=== PATIENT | male | born 1940 | race Caucasian/White ===

== ENCOUNTER → 2018-12-09 | Outpatient (REF) | payer MEDICARE ==
[~2018-12-09] MED LIST: ADULT ASPIRIN L81 MG; AMIODARONE200 MG PO; ASPIRIN PO; CORDARONE/200 MG/TAB PO; DILTIAZEM120 M1 OR; DILTIAZEM120 M1 PO; HYDROCHLOROT25 MG PO; JANUMET1 TA1 PO; LIPITOR20 MG PO; LISINOPRIL20 M1 OR; LISINOPRIL20 M1 PO; LOTREL 5/101 CAP PO; MEDDOSEPAK PO; METFORMIN500 MG PO; NIACIN500 M2 PO; NIACIN500 M3 OR; PERCOCET 5/325M1 TAB PO; PRADAXA150 MG PO
== END | disposition home or self-care (01) ==
LOC: DI 14:19
PROVIDERS: ATTEND Urology
DX: N20.0 Calculus of kidney (principal)

== ENCOUNTER 2019-10-15 | Emergency (ER) | payer MEDICARE ==
[2019-10-15] MEDS ORDERED: KEFLEX500 MG PO (01:02)
[2019-10-15] MEDS ORDERED: ULTRAM50 MG PO (01:02)
[2019-10-15] MEDS ORDERED: TRESIBA FL100 UNIT/M SC (01:08)
[2019-10-15] MEDS ORDERED: COUMADIN2.5 MG PO (01:10)
[2019-10-15] MEDS ORDERED: COUMADIN7.5 MG PO (01:10)
[2019-10-15] MEDS ORDERED: COREG25 MG PO (01:11)
[2019-10-15] MEDS ORDERED: METFORMIN500 MG PO (01:12)
== END 2019-10-15 01:25 | disposition home or self-care (01) ==
DX: L72.3 Sebaceous cyst (principal); E11.9 Type 2 diabetes mellitus without complications; I10 Essential (primary) hypertension; I48.91 Unspecified atrial fibrillation; Z79.4 Long term (current) use of insulin

== ENCOUNTER 2020-12-19 | Emergency (ER) | payer MEDICARE ==
[~2020-12-19] MED LIST changes: +COREG25 MG PO; +COUMADIN7.5 MG PO; +KEFLEX500 MG PO; +TRESIBA FL100 UNIT/M SC; +ULTRAM50 MG PO; +WARFARIN SODIU2.5 MG PO
[2020-12-19] MEDS ORDERED: WARFARIN5 MG PO (20:28)
[2020-12-19] MEDS ORDERED: CARDIZEM LA300 MG PO (20:36)
[2020-12-19] MEDS ORDERED: AVALIDE 300-12.1 TAB PO (20:37)
[2020-12-19] MEDS ORDERED: ORPHENADRINE100 MG PO (22:13)
[2020-12-19] MEDS ORDERED: PERCOCET 5/321 COMBO PO (22:13)
== END 2020-12-19 22:40 | disposition home or self-care (01) ==
DX: M54.5 Low back pain (principal); I10 Essential (primary) hypertension; E11.9 Type 2 diabetes mellitus without complications; I48.91 Unspecified atrial fibrillation; Z79.84 Long term (current) use of oral hypoglycemic drugs; Z98.1 Arthrodesis status

== ENCOUNTER 2021-08-13 09:56 | Emergency (ER) | payer MEDICARE ==
[~2021-08-13] VITALS: Ht 190.5 cm; Wt 104.0 kg
[~2021-08-13 09:56] MED LIST changes: +AVALIDE 300-12.1 TAB PO; +CARDIZEM LA300 MG PO; +ORPHENADRINE100 MG PO; +PERCOCET 5/321 COMBO PO; +WARFARIN5 MG PO
[2021-08-13] MEDS ORDERED: PLAVIX75 MG PO (10:12)
[2021-08-13] MEDS ORDERED: LIPITOR20 M1 PO (10:13)
[2021-08-13] MEDS ORDERED: ALLOPURINOL100 MG PO (10:14)
[2021-08-13 10:34] LABS: IMMATURE GRANULOCYTES 0.4 % (0.0-5.0); MEAN CORPUSCULAR HGB 31.9 pG CALC (26.0-32.0); MEAN CORPUSCULAR HGB CONC 33.1 g/dL CAL (32.0-36.0); NEUT# 9.91 thou/uL (1.82-7.42); RED BLOOD COUNT 3.13 mill/uL (4.70-6.10); RED CELL DISTRI WIDTH 15.3 % (11.5-15.5)
[2021-08-13 10:41] LABS: HEMATOCRIT 30.2 % (39.0-50.0); MEAN CELL VOLUME 96.5 fL CALC (80.0-100.0)
[2021-08-13 12:23] VITALS: BP 180/93
== END 2021-08-13 12:33 | disposition home or self-care (01) ==
LOC: ED 09:56
PROVIDERS: Family Medicine
PROC: 0S9D3ZZ Drainage of Left Knee Joint, Percutaneous Approach (ICD-10-PCS; principal; 2021-08-13)
DX: M25.562 Pain in left knee (principal); I10 Essential (primary) hypertension; E78.5 Hyperlipidemia, unspecified; E11.9 Type 2 diabetes mellitus without complications; M10.9 Gout, unspecified; I48.91 Unspecified atrial fibrillation; Z79.4 Long term (current) use of insulin; Z79.84 Long term (current) use of oral hypoglycemic drugs

== ENCOUNTER 2023-10-11 17:55 | Observation (INO) | payer MEDICARE ==
[~2023-10-11] VITALS: Ht 190.5 cm; Wt 82.0 kg
[2023-10-11] VITALS (15 sets, daily range): BP systolic 124–170; BP diastolic 71–88
[~2023-10-11 17:55] MED LIST changes: +ALLOPURINOL100 MG PO; +FLEXERIL5 M1 PO; +LIPITOR20 M1 PO; +PLAVIX75 MG PO
[2023-10-11 18:47] LABS: BASO% 0.4 % (0-3); EOS% 1.2 % (0-8); HEMATOCRIT 28.7 % (39.0-50.0); HEMOGLOBIN 9.2 g/dl (14.0-18.0); IMMATURE GRANULOCYTES 2.6 % (0.0-5.0); LYMPH% 3.7 % (15-41); MEAN CELL VOLUME 99.7 fL CALC (80.0-100.0); MEAN CORPUSCULAR HGB 31.9 pG CALC (26.0-32.0); MEAN CORPUSCULAR HGB CONC 32.1 g/dL CAL (32.0-36.0); MONO% 8.4 % (2-13); NEUT# 14.56 thou/uL (1.82-7.42); NEUT% 83.7 % (42-76); RED BLOOD COUNT 2.88 mill/uL (4.70-6.10)
[2023-10-11 19:07] LABS: ALBUMIN 4.4 g/dL (3.2-5.0); ANION GAP 14 (6-22 (CALC)); BILIRUBIN, TOTAL 1.3 mg/dL (0.2-1.3); BUN 28 mg/dL (8-23); BUN/CREATININE RATIO 23 (12-20 (CALC)); CARBON DIOXIDE 26 mmol/l (22-30); CHLORIDE 103 mmol/l (95-108); CREATININE 1.2 mg/dL (0.7-1.3); GFR FOR AFR.AMER. > 60 ML/MIN (>=60 (CALC)); GFR OTHER RACES 58 ML/MIN (>=60 (CALC)); POTASSIUM 4.2 mmol/l (3.5-5.1); SGOT/AST 24 u/l (19-48); SODIUM 139 mmol/l (137-146); TOTAL PROTEIN 7.7 g/dL (6.3-8.2)
[2023-10-11 19:12] LABS: ALKALINE PHOSPHATASE 106 u/l (38-126)
[2023-10-11] MEDS ORDERED: LASIX 40 MG TAB40 MG PO (20:22)
[2023-10-11] MEDS ORDERED: AMLODIPINE BESYL5 MG PO (20:22)
[2023-10-11] MEDS ORDERED: METHYLPRED4 MG PO (20:23)
[2023-10-11] MEDS ORDERED: FLEXERIL5 M1 PO (20:24)
[2023-10-11] MEDS ORDERED: CARVEDILOL12.5 MG PO (20:25)
[2023-10-11] MEDS ORDERED: KLOR-CON M1010 MEQ PO (20:25)
[2023-10-12] VITALS (57 sets, daily range): BP systolic 99–148; BP diastolic 58–93
[2023-10-12 06:03] LABS: CHOLESTEROL HDL RATIO 2.6 (<4.4 (CALC)); MAGNESIUM 1.8 mg/dL (1.6-2.3)
[2023-10-12 09:23] LABS: BASO% 0.3 % (0-3); HEMATOCRIT 26.6 % (39.0-50.0); HEMOGLOBIN 8.4 g/dl (14.0-18.0); IMMATURE GRANULOCYTES 3.4 % (0.0-5.0); LYMPH% 1.6 % (15-41); MEAN CELL VOLUME 98.2 fL CALC (80.0-100.0); MEAN CORPUSCULAR HGB CONC 31.6 g/dL CAL (32.0-36.0); MONO% 9.1 % (2-13); NEUT# 20.31 thou/uL (1.82-7.42); NEUT% 85.6 % (42-76); RED BLOOD COUNT 2.71 mill/uL (4.70-6.10); RED CELL DISTRI WIDTH 16.9 % (11.5-15.5)
[2023-10-12 09:42] LABS: ALBUMIN 3.6 g/dL (3.2-5.0); ALKALINE PHOSPHATASE 89 u/l (38-126); ANION GAP 13 (6-22 (CALC)); BILIRUBIN, TOTAL 1.3 mg/dL (0.2-1.3); BUN 28 mg/dL (8-23); BUN/CREATININE RATIO 25 (12-20 (CALC)); CARBON DIOXIDE 23 mmol/l (22-30); CHLORIDE 106 mmol/l (95-108); CREATININE 1.1 mg/dL (0.7-1.3); GFR FOR AFR.AMER. > 60 ML/MIN (>=60 (CALC)); GFR OTHER RACES > 60 ML/MIN (>=60 (CALC)); POTASSIUM 4.7 mmol/l (3.5-5.1); SGOT/AST 19 u/l (19-48); SODIUM 136 mmol/l (137-146); TOTAL PROTEIN 6.5 g/dL (6.3-8.2)
[2023-10-13] VITALS (18 sets, daily range): BP systolic 120–155; BP diastolic 62–97
[2023-10-13 05:19] LABS: BASO% 0.6 % (0-3); EOS% 0.4 % (0-8); HEMATOCRIT 27.5 % (39.0-50.0); HEMOGLOBIN 8.7 g/dl (14.0-18.0); IMMATURE GRANULOCYTES 2.6 % (0.0-5.0); LYMPH% 5.1 % (15-41); MEAN CELL VOLUME 99.6 fL CALC (80.0-100.0); MEAN CORPUSCULAR HGB 31.5 pG CALC (26.0-32.0); MEAN CORPUSCULAR HGB CONC 31.6 g/dL CAL (32.0-36.0); MONO% 13.7 % (2-13); NEUT# 9.74 thou/uL (1.82-7.42); NEUT% 77.6 % (42-76); RED BLOOD COUNT 2.76 mill/uL (4.70-6.10)
[2023-10-13 05:35] LABS: ALBUMIN 3.4 g/dL (3.2-5.0); ALKALINE PHOSPHATASE 90 u/l (38-126); ANION GAP 13 (6-22 (CALC)); BILIRUBIN, TOTAL 1.1 mg/dL (0.2-1.3); BUN 35 mg/dL (8-23); BUN/CREATININE RATIO 28 (12-20 (CALC)); CARBON DIOXIDE 24 mmol/l (22-30); CHLORIDE 106 mmol/l (95-108); CREATININE 1.3 mg/dL (0.7-1.3); GFR FOR AFR.AMER. > 60 ML/MIN (>=60 (CALC)); GFR OTHER RACES 53 ML/MIN (>=60 (CALC)); MAGNESIUM 2.1 mg/dL (1.6-2.3); POTASSIUM 4.5 mmol/l (3.5-5.1); SGOT/AST 15 u/l (19-48); SODIUM 139 mmol/l (137-146); TOTAL PROTEIN 6.1 g/dL (6.3-8.2)
[2023-10-13] MEDS ORDERED: LASIX 40 MG TAB40 MG PO (15:48)
[2023-10-13] MEDS ORDERED: ZITHROMAX250 MG PO (15:49)
[2023-10-13] MEDS ORDERED: AMOX/K CLAV875 M1 PO (15:49)
== END 2023-10-13 17:25 | disposition home or self-care (01) ==
LOC: ED 17:55 → ED-I 19:15 → ED 19:43 → ICU 19:44
PROVIDERS: Family Medicine; Student in an Organized Health Care Education/Training Program; ADMIT Internal Medicine; ATTEND Internal Medicine
PROC: 0W993ZZ Drainage of Right Pleural Cavity, Percutaneous Approach (ICD-10-PCS; principal; 2023-10-13)
DX: J18.9 Pneumonia, unspecified organism (principal); J91.8 Pleural effusion in other conditions classified elsewhere; I48.91 Unspecified atrial fibrillation; I10 Essential (primary) hypertension; E11.9 Type 2 diabetes mellitus without complications; C92.10 Chronic myeloid leukemia, BCR/ABL-positive, not having achieved remission; Z95.818 Presence of other cardiac implants and grafts; Z79.84 Long term (current) use of oral hypoglycemic drugs; Z79.4 Long term (current) use of insulin
CPT/HCPCS: J1650; Q9967

== ENCOUNTER 2023-10-26 17:04 | Inpatient (IN) | payer MEDICARE ==
[~2023-10-26] VITALS: Ht 190.5 cm; Wt 102.0 kg
[2023-10-26] VITALS (31 sets, daily range): BP systolic 122–139; BP diastolic 56–102
[~2023-10-26 17:04] MED LIST changes: +AMLODIPINE BESYL5 MG PO; +AMOX/K CLAV875 M1 PO; +CARVEDILOL12.5 MG PO; +KLOR-CON M1010 MEQ PO; +LASIX 40 MG TAB40 MG PO; +METHYLPRED4 MG PO; +ZITHROMAX250 MG PO
[2023-10-26] MEDS ORDERED: PREDNISONE20 MG PO (18:26)
[2023-10-26] MEDS ORDERED: SODIUM CHLORIDE 0.9% 1,000 ML IV ONE ×2 (18:30→19:40)
[2023-10-26 19:12] LABS: BASO% 0.2 % (0-3); HEMATOCRIT 23.1 % (39.0-50.0); HEMOGLOBIN 7.7 g/dl (14.0-18.0); IMMATURE GRANULOCYTES 4.1 % (0.0-5.0); LYMPH% 1.8 % (15-41); MEAN CELL VOLUME 92.4 fL CALC (80.0-100.0); MEAN CORPUSCULAR HGB 30.8 pG CALC (26.0-32.0); MEAN CORPUSCULAR HGB CONC 33.3 g/dL CAL (32.0-36.0); MONO% 3.2 % (2-13); NEUT# 11.36 thou/uL (1.82-7.42); NEUT% 90.7 % (42-76); RED BLOOD COUNT 2.5 mill/uL (4.70-6.10)
[2023-10-26 19:25] LABS: ALBUMIN 3.3 g/dL (3.2-5.0); ALKALINE PHOSPHATASE 111 u/l (38-126); CHLORIDE 95 mmol/l (95-108); SGOT/AST 21 u/l (19-48)
[2023-10-26 19:37] LABS: ANION GAP 17 (6-22 (CALC)); BILIRUBIN, TOTAL 0.5 mg/dL (0.2-1.3); BUN 107 mg/dL (8-23); BUN/CREATININE RATIO 36 (12-20 (CALC)); CARBON DIOXIDE 17 mmol/l (22-30); GFR FOR AFR.AMER. 24 ML/MIN (>=60 (CALC)); GFR OTHER RACES 20 ML/MIN (>=60 (CALC)); POTASSIUM 5.6 mmol/l (3.5-5.1); SODIUM 123 mmol/l (137-146)
[2023-10-26] MEDS ORDERED: INSULIN REGULAR (HUMAN) 100 UNIT/ML INJ IV ONE (19:40)
[2023-10-26] MEDS ORDERED: SODIUM CHLORIDE 0.9% 500 ML IV ONE (19:45)
[2023-10-26 19:58] LABS: URINE BILIRUBIN - DIPSTICK Negative (NEGATIVE); URINE BLOOD DIPSTICK Negative (NEGATIVE); URINE GLUCOSE - DIPSTICK >=1000 mg/dL (NEGATIVE); URINE KETONE Negative (NEGATIVE); URINE LEUK ESTERASE Negative (NEGATIVE); URINE NITRITE - DIPSTICK Negative (Negative); URINE PH 5.5 (4.5-8.0); URINE PROTEIN - DIPSTICK Negative (NEG-TRACE); URINE SPECIFIC GRAVITY <=1.005; URINE UROBILINOGEN - DIPSTICK 0.2 E.U./dL (0.2)
[2023-10-26 19:59] LABS: URINE COLOR Yellow
[2023-10-26] MEDS ORDERED: MAGNESIUM HYDROXIDE 30 ML UDC PO PRN (20:30)
[2023-10-26] MEDS ORDERED: SODIUM CHLORIDE 0.9% 1,000 ML IV PRN (20:30)
[2023-10-26] MEDS ORDERED: ACETAMINOPHEN 325 MG/TAB PO PRN (20:30)
[2023-10-26] MEDS ORDERED: POTASSIUM CHLORIDE 40 MEQ in SODIUM CHLORIDE 0.45% 1,000 ML IV PRN (21:40)
[2023-10-26] MEDS ORDERED: DEXTROSE 5% w/NACL 0.45 1,000 ML IV PRN (21:40)
[2023-10-26] MEDS ORDERED: SODIUM CHLORIDE 0.45% 1,000 ML IV PRN (21:40)
[2023-10-26] MEDS ORDERED: INSULIN REGULAR (HUMAN) IN SOD 100 ML IV PRN (21:40)
[2023-10-26] MEDS ORDERED: D5 1/2 NaCL W/KCL 40MEQ 1,000 ML IV PRN (21:40)
[2023-10-26] MEDS ORDERED: Heparin SODIUM (Porcine) 5,000 UNITS/ML SDV SC SCH (22:00)
[2023-10-26 23:06] LABS: BILIRUBIN, TOTAL 0.7 mg/dL (0.2-1.3); CREATININE 2.7 mg/dL (0.7-1.3); TOTAL PROTEIN 5.6 g/dL (6.3-8.2)
[2023-10-26 23:22] LABS: POTASSIUM 5.7 mmol/l (3.5-5.1)
[2023-10-27] VITALS (29 sets, daily range): BP systolic 118–152; BP diastolic 61–83
[2023-10-27 01:17] LABS: CREATININE 2.8 mg/dL (0.7-1.3)
[2023-10-27 01:32] LABS: POTASSIUM 5.6 mmol/l (3.5-5.1)
[2023-10-27] MEDS ORDERED: AZITHROMYCIN 500 MG in SODIUM CHLORIDE 0.9% 250 ML IV SCH (06:00)
[2023-10-27 06:18] LABS: BASO% 0.3 % (0-3); HEMATOCRIT 23.6 % (39.0-50.0); HEMOGLOBIN 8.1 g/dl (14.0-18.0); IMMATURE GRANULOCYTES 3.5 % (0.0-5.0); LYMPH% 4.5 % (15-41); MEAN CELL VOLUME 91.1 fL CALC (80.0-100.0); MEAN CORPUSCULAR HGB 31.3 pG CALC (26.0-32.0); MEAN CORPUSCULAR HGB CONC 34.3 g/dL CAL (32.0-36.0); MONO% 4.7 % (2-13); NEUT# 10.05 thou/uL (1.82-7.42); RED BLOOD COUNT 2.59 mill/uL (4.70-6.10); RED CELL DISTRI WIDTH 15.1 % (11.5-15.5)
[2023-10-27 06:40] LABS: C-REACTIVE PROTEIN 1.1 mg/dL (0-0.9); CREATININE 2.6 mg/dL (0.7-1.3); MAGNESIUM 2.1 mg/dL (1.6-2.3); TOTAL PROTEIN 5.5 g/dL (6.3-8.2)
[2023-10-27 06:43] LABS: BILIRUBIN, TOTAL 1.1 mg/dL (0.2-1.3); POTASSIUM 5.5 mmol/l (3.5-5.1)
[2023-10-27 12:58] LABS: INTERNATIONAL NORMALIZED RATIO 1.3 RATIO (0.7-1.3); PROTHROMBIN TIME 12.7 SECONDS (9.0-12.5)
[2023-10-27 13:07] LABS: CREATININE 2.3 mg/dL (0.7-1.3); POTASSIUM 4.5 mmol/l (3.5-5.1)
[2023-10-27] MEDS ORDERED: INSULIN DETEMIR 100 UNITS/ML SC SCH (17:32)
[2023-10-27] MEDS ORDERED: DEXTROSE 250 ML IV PRN ×2 (17:35)
[2023-10-27 18:10] LABS: CREATININE 2.1 mg/dL (0.7-1.3); POTASSIUM 4.5 mmol/l (3.5-5.1)
[2023-10-27] MEDS ORDERED: INSULIN LISPRO 100 UNITS/ML ML SC SCH (21:00)
[2023-10-28] VITALS (23 sets, daily range): BP systolic 120–145; BP diastolic 62–85
[2023-10-28 05:33] LABS: BASO% 0.2 % (0-3); EOS% 0.9 % (0-8); HEMATOCRIT 26.5 % (39.0-50.0); HEMOGLOBIN 8.8 g/dl (14.0-18.0); IMMATURE GRANULOCYTES 3.9 % (0.0-5.0); LYMPH% 6.2 % (15-41); MEAN CELL VOLUME 92.7 fL CALC (80.0-100.0); MEAN CORPUSCULAR HGB 30.8 pG CALC (26.0-32.0); MEAN CORPUSCULAR HGB CONC 33.2 g/dL CAL (32.0-36.0); MONO% 6.8 % (2-13); NEUT# 8.64 thou/uL (1.82-7.42); RED BLOOD COUNT 2.86 mill/uL (4.70-6.10); RED CELL DISTRI WIDTH 15.5 % (11.5-15.5)
[2023-10-28 05:48] LABS: ALBUMIN 2.7 g/dL (3.2-5.0); BILIRUBIN, TOTAL 0.9 mg/dL (0.2-1.3); CREATININE 1.9 mg/dL (0.7-1.3); MAGNESIUM 1.9 mg/dL (1.6-2.3); POTASSIUM 4.7 mmol/l (3.5-5.1); TOTAL PROTEIN 5.3 g/dL (6.3-8.2)
[2023-10-28] MEDS ORDERED: SODIUM CHLORIDE 0.9% 0 ML IV ONE (06:46)
[2023-10-28] MEDS ORDERED: PANTOPRAZOLE SODIUM Sesquihydr 40 MG/TAB PO SCH (09:00)
[2023-10-28] MEDS ORDERED: CARVEDILOL 25 MG/TAB PO SCH (09:00)
[2023-10-28] MEDS ORDERED: predniSONE 20 MG/TAB PO SCH (11:00)
[2023-10-28] MEDS ORDERED: ATORVASTATIN CALCIUM 10 MG/TAB PO SCH (21:00)
[2023-10-29] VITALS (15 sets, daily range): BP systolic 124–153; BP diastolic 60–82
[2023-10-29 07:18] LABS: ALBUMIN 2.8 g/dL (3.2-5.0); CREATININE 1.7 mg/dL (0.7-1.3); POTASSIUM 5.1 mmol/l (3.5-5.1)
[2023-10-29 07:28] LABS: BASO% 0.4 % (0-3); HEMATOCRIT 24.7 % (39.0-50.0); HEMOGLOBIN 8.2 g/dl (14.0-18.0); IMMATURE GRANULOCYTES 2.5 % (0.0-5.0); LYMPH% 2.7 % (15-41); MEAN CELL VOLUME 94.3 fL CALC (80.0-100.0); MEAN CORPUSCULAR HGB 31.3 pG CALC (26.0-32.0); MEAN CORPUSCULAR HGB CONC 33.2 g/dL CAL (32.0-36.0); MONO% 4.8 % (2-13); NEUT# 8.17 thou/uL (1.82-7.42); NEUT% 89.6 % (42-76); RED BLOOD COUNT 2.62 mill/uL (4.70-6.10); RED CELL DISTRI WIDTH 15.7 % (11.5-15.5)
[2023-10-29] MEDS ORDERED: FUROSEMIDE 40 MG/4 ML SDV IV SCH (10:00)
[2023-10-29] MEDS ORDERED: OMNICEF300 MG PO (11:13)
== END 2023-10-29 14:35 | disposition home or self-care (01) | DRG 917 ==
LOC: ED 17:04 → ED-I 19:36 → ED 20:19 → ICU 20:20
PROVIDERS: Family Medicine; Internal Medicine Nephrology; ADMIT Student in an Organized Health Care Education/Training Program; ATTEND Student in an Organized Health Care Education/Training Program
PROC: 30233N1 Transfusion of Nonautologous Red Blood Cells into Peripheral Vein, Percutaneous Approach (ICD-10-PCS; principal; 2023-10-26)
PROC: 0W993ZZ Drainage of Right Pleural Cavity, Percutaneous Approach (ICD-10-PCS; 2023-10-28)
DX: T38.0X1A Poisoning by glucocorticoids and synthetic analogues, accidental (unintentional), initial encounter (principal); E11.00 Type 2 diabetes mellitus with hyperosmolarity without nonketotic hyperglycemic-hyperosmolar coma (NKHHC); J18.9 Pneumonia, unspecified organism; N17.9 Acute kidney failure, unspecified; I13.0 Hypertensive heart and chronic kidney disease with heart failure and stage 1 through stage 4 chronic kidney disease, or unspecified chronic kidney disease; E87.20 Acidosis, unspecified; E87.1 Hypo-osmolality and hyponatremia; J91.8 Pleural effusion in other conditions classified elsewhere; C93.10 Chronic myelomonocytic leukemia not having achieved remission; D64.9 Anemia, unspecified; I48.91 Unspecified atrial fibrillation; I50.9 Heart failure, unspecified; E86.1 Hypovolemia; M31.6 Other giant cell arteritis; E11.22 Type 2 diabetes mellitus with diabetic chronic kidney disease; N18.32 Chronic kidney disease, stage 3b; E87.5 Hyperkalemia; E86.9 Volume depletion, unspecified; I95.9 Hypotension, unspecified; Z95.818 Presence of other cardiac implants and grafts; Z79.4 Long term (current) use of insulin; Z79.84 Long term (current) use of oral hypoglycemic drugs; Z20.822 Contact with and (suspected) exposure to COVID-19
CPT/HCPCS: P9016

== ENCOUNTER 2023-11-06 18:34 | Inpatient (IN) | payer MEDICARE ==
[~2023-11-06] VITALS: Ht 190.5 cm; Wt 88.8 kg
[~2023-11-06 18:34] MED LIST changes: +OMNICEF300 MG PO; +PERCOCET 10/31 COMBO PO; +PREDNISONE20 MG PO
[2023-11-06] MEDS ORDERED: METOLAZONE5 MG PO (20:48)
--- NOTE | 2023-11-06 20:57 | NUR ---
VIA W/C TO ROOM 8 AFTER TRIAGE.
[2023-11-06] MEDS ORDERED: LIDOCAINE HCL 2 % JELLY UR ONE (21:05)
[2023-11-06] MEDS ORDERED: FUROSEMIDE 40 MG/4 ML SDV IV ONE (21:05)
[2023-11-06] MEDS ORDERED: METOLAZONE 2.5 MG/TAB PO ONE (21:05)
--- NOTE | 2023-11-06 21:07 | NUR ---
CORRECTION...TRIAGE AND NOTES COMPLETED BY ICELO/MED REC COMPLETED BY CIELO
[2023-11-06 21:29] LABS: BASO% 0.4 % (0-3); HEMATOCRIT 21.4 % (39.0-50.0); IMMATURE GRANULOCYTES 4.1 % (0.0-5.0); LYMPH% 1.9 % (15-41); MEAN CELL VOLUME 95.1 fL CALC (80.0-100.0); MEAN CORPUSCULAR HGB 30.7 pG CALC (26.0-32.0); MEAN CORPUSCULAR HGB CONC 32.2 g/dL CAL (32.0-36.0); MONO% 17.4 % (2-13); NEUT# 12.06 thou/uL (1.82-7.42); NEUT% 76.2 % (42-76); RED BLOOD COUNT 2.25 mill/uL (4.70-6.10)
[2023-11-06 21:33] LABS: HEMOGLOBIN 6.9 g/dl (14.0-18.0)
[2023-11-06 21:54] LABS: ALBUMIN 2.9 g/dL (3.2-5.0); BILIRUBIN, TOTAL 0.7 mg/dL (0.2-1.3); TOTAL PROTEIN 5.6 g/dL (6.3-8.2)
[2023-11-06 21:58] LABS: CREATININE 4.1 mg/dL (0.7-1.3)
--- NOTE | 2023-11-06 22:15 | NUR ---
16 F TRIPLETT PLACED. 500 ML OF URINE OUT.
--- NOTE | 2023-11-06 23:00 | NUR ---
PATIENT RESTING IN BED, NO APPARENT DISTRESS NOTED. AT BEDSIDE.
[2023-11-06 23:13] LABS: URINE BILIRUBIN - DIPSTICK Negative (NEGATIVE); URINE BLOOD DIPSTICK Trace-intact (NEGATIVE); URINE GLUCOSE - DIPSTICK Negative (NEGATIVE); URINE KETONE Negative (NEGATIVE); URINE LEUK ESTERASE Negative (NEGATIVE); URINE NITRITE - DIPSTICK Negative (Negative); URINE PROTEIN - DIPSTICK Negative (NEG-TRACE); URINE UROBILINOGEN - DIPSTICK 0.2 E.U./dL (0.2)
[2023-11-06 23:14] LABS: URINE COLOR Yellow
[2023-11-06] MEDS ORDERED: INSULIN REGULAR (HUMAN) 100 UNIT/ML INJ IV ONE (23:45)
[2023-11-06] MEDS ORDERED: INSULIN REGULAR (HUMAN) 100 UNIT/ML INJ SC ONE (23:45)
[2023-11-06] MEDS ORDERED: MAGNESIUM HYDROXIDE 30 ML UDC PO PRN (23:50)
[2023-11-06] MEDS ORDERED: FAMOTIDINE 10MG/ML 2ML SDV IV PRN (23:50)
[2023-11-06] MEDS ORDERED: ACETAMINOPHEN 325 MG/TAB PO PRN (23:50)
[2023-11-06] MEDS ORDERED: ONDANSETRON 4 MG/TAB ODT PO PRN (23:50)
[2023-11-06] MEDS ORDERED: ONDANSETRON HCl 4 MG/2 ML SDV IV PRN (23:50)
[2023-11-06] MEDS ORDERED: ALUM & MAG HYDROX-SIMETHICONE 30 ML PO PRN (23:50)
[2023-11-06] MEDS ORDERED: FUROSEMIDE 40 MG/4 ML SDV IV SCH (23:55)
[2023-11-06] MEDS ORDERED: DEXTROSE 250 ML IV PRN (23:55)
[2023-11-07] VITALS (24 sets, daily range): BP systolic 98–123; BP diastolic 48–60
[2023-11-07] MEDS ORDERED: SODIUM CHLORIDE 0.9% 500 ML IV ONE (00:03)
--- NOTE | 2023-11-07 00:22 | NUR ---
BLOOD VERIFIED WITH Dimitris FLORENTINO RN.
--- NOTE | 2023-11-07 01:00 | NUR ---
450 ML OF URINE OUT.
--- NOTE | 2023-11-07 02:10 | NUR ---
CALL TO Brent ALBERTO FOR REPORT.
--- NOTE | 2023-11-07 02:45 | NUR ---
PATIENT TRANSPORTED TO ROOM 260 VIA WHEELCHAIR. CARE HANDED OVER TO Brent ALBERTO.
[2023-11-07] MEDS ORDERED: SODIUM CHLORIDE 0.9% 500 ML IV PRN (02:55)
[2023-11-07] MEDS ORDERED: SODIUM CHLORIDE 0.9% 250 ML IV PRN (03:00)
--- NOTE | 2023-11-07 04:33 | NUR ---
NO REACTIONS NOTED AT THIS TIME, OINGOING 2ND UNIT OF PRBC, V/S OBTAINED AND RECORDED.
[2023-11-07] MEDS ORDERED: DEXTROSE 250 ML IV PRN (04:55)
[2023-11-07] MEDS ORDERED: IPRATROPIUM-Albuterol 0.5MG-2.5MG/3 ML NEB PRN (05:00)
--- NOTE | 2023-11-07 05:04 | NUR ---
RECEIVED REPORT FROM NURSE GUILLEN, PATIENT TRANSPORTED VIA BED,PATINET APPEARS PALE AND JAUNDICE, ARIVED AT MS UNIT AT 0233 TRASNPORTED VIA BED, PATIENT IRRITABLE, IV ON LEFT WRIST G 20 HOOKED NS @ KVO ONGOING 2ND UNIT OF BLOOD, SALINE LOCK NOTED ON RAC G 20 SALINE LOCK, ADMISSION ASSESSMENT COMPLETED, PRESSURE ON BUTTOCKS REDNESS NOTED BLANCHABLE, GLUCOSE 274, TRIPLETT F 16 INSERTED ON ED, CLEAR YELLOW URINE, CALL LIGHT IN REACH.
[2023-11-07] MEDS ORDERED: INSULIN LISPRO 100 UNITS/ML ML SC SCH (07:00)
[2023-11-07] MEDS ORDERED: LOSARTAN POTASS50 MG PO (07:02)
--- NOTE | 2023-11-07 07:29 | NUR ---
BOOKED A CARDIOLOGY CONSULT WITH DR BETANCUR VIA THE [employer] [facility] AT 0729 HRS.
[2023-11-07] MEDS ORDERED: INSULIN DETEMIR 100 UNITS/ML SC SCH (09:00)
[2023-11-07] MEDS ORDERED: METOLAZONE 2.5 MG/TAB PO SCH (09:00)
[2023-11-07 09:25] LABS: BASO% 0.3 % (0-3); HEMATOCRIT 23.7 % (39.0-50.0); HEMOGLOBIN 7.9 g/dl (14.0-18.0); IMMATURE GRANULOCYTES 3.8 % (0.0-5.0); LYMPH% 2.2 % (15-41); MEAN CELL VOLUME 92.2 fL CALC (80.0-100.0); MEAN CORPUSCULAR HGB 30.7 pG CALC (26.0-32.0); MEAN CORPUSCULAR HGB CONC 33.3 g/dL CAL (32.0-36.0); MONO% 16.5 % (2-13); NEUT# 11.5 thou/uL (1.82-7.42); NEUT% 77.2 % (42-76); RED BLOOD COUNT 2.57 mill/uL (4.70-6.10); RED CELL DISTRI WIDTH 15.7 % (11.5-15.5)
--- NOTE | 2023-11-07 09:56 | NUR ---
CONTACTED DR BUENROSTRO'S OFFICE IN REFERENCE TO A PHYSICIAN CONSULT. I SPOKE WITH CAYETANO (ANSWERING SERVICE) AT 0956 HRS.
[2023-11-07 09:59] LABS: CREATININE 3.7 mg/dL (0.7-1.3); POTASSIUM 4.8 mmol/l (3.5-5.1)
[2023-11-07] MEDS ORDERED: HYDROcodone 5 MG/Acetaminophen 325 MG/COMBO PO PRN (10:25)
--- NOTE | 2023-11-07 12:00 | NUR ---
LYING IN BED,REFUSED TO GET INTO RECLINER. STATES HE JUST WANTS TO LAY IN BED. SEVERAL ATTEMPTS TO MOTIVATE PATIENT TO GET OOB AND GET CLEANED UP WITHOUT SUCCESS. IS AN ENABLER, AND DISCOURAGED ANY ATTEMPTS MADW. CARDIOLOGY CONSULT COMPLETED. ECHO ORDERED FOR TOMORROW. TRIPLETT CATH IN PLACE DUE TO RETENTION.
[2023-11-07] MEDS ORDERED: FUROSEMIDE 40 MG/4 ML SDV IV SCH (14:00)
--- NOTE | 2023-11-07 16:07 | NUR ---
BEDSIDE SHIFT REPORT COMPLETED. RESTING IN BED. AT BEDSIDE. DENIES NEEDS AT CURRENT TIME.
--- NOTE | 2023-11-07 16:20 | NUR ---
SEEMS DEPRESSED, NO MOTIVATION, STATES HE JUST WANTS TO BE LEFT ALONE. HAS NEGATIVE STATEMENTS ABOUT HIS MEDICATIONS, "IT NOT WORKING," ETC. MD AWARE OF PATIENTS S/S. REMAINS AFIB ON TELE.
--- NOTE | 2023-11-07 16:44 | NUR ---
c/o pain in neck, knee and back. Medicated with prn loritab.
--- NOTE | 2023-11-07 20:00 | NUR ---
RECEIVED REPORT FROM NURSE ZACHARY, PATIENT ALERT ORINETED RESTING IN BED, APPEARS PALE, IV ON LEFT WRIST G 20 SALINE LOCK PATENT FLUSHES WELL, HOOKED ON TELEMETRY SR WITH PVC 91, ACTIVE BOWEL SOUNDS , TRIPLETT CATHETER DRAINING YELLOW COLORED URINE, C/O PAIN WILL MEDICATED, CALL LIGHT IN REACHED
--- NOTE | 2023-11-08 | NUR ---
GILESNET RESTING IN BED, NOT IN DISTRESS, CALL LIGHT IN REACHED.
[2023-11-08 00:20] VITALS: BP 100/54
--- NOTE | 2023-11-08 04:15 | NUR ---
PATIENT RESTING IN BED, EMPTIED TRIPLETT BAG, YELLOW CLEAR URINE 700CC,NOT IN DSITRESS,CALL LIGHT IN REACH.
[2023-11-08 04:22] VITALS: BP 109/53
[2023-11-08 04:49] LABS: BASO% 0.4 % (0-3); EOS% 0.3 % (0-8); HEMATOCRIT 24.6 % (39.0-50.0); HEMOGLOBIN 8.3 g/dl (14.0-18.0); LYMPH% 2.5 % (15-41); MEAN CELL VOLUME 92.5 fL CALC (80.0-100.0); MEAN CORPUSCULAR HGB 31.2 pG CALC (26.0-32.0); MEAN CORPUSCULAR HGB CONC 33.7 g/dL CAL (32.0-36.0); MONO% 15.2 % (2-13); NEUT# 12.83 thou/uL (1.82-7.42); NEUT% 77.6 % (42-76); RED BLOOD COUNT 2.66 mill/uL (4.70-6.10); RED CELL DISTRI WIDTH 16.1 % (11.5-15.5)
[2023-11-08 04:59] LABS: ALBUMIN 2.5 g/dL (3.2-5.0); ALKALINE PHOSPHATASE 82 u/l (38-126); CHLORIDE 101 mmol/l (95-108); CREATININE 3.5 mg/dL (0.7-1.3); GFR FOR AFR.AMER. 20 ML/MIN (>=60 (CALC)); GFR OTHER RACES 17 ML/MIN (>=60 (CALC)); MAGNESIUM 1.6 mg/dL (1.6-2.3); POTASSIUM 4.2 mmol/l (3.5-5.1); SGOT/AST 11 u/l (19-48); SODIUM 132 mmol/l (137-146)
[2023-11-08 05:10] LABS: ANION GAP 12 (6-22 (CALC)); BILIRUBIN, TOTAL 1.3 mg/dL (0.2-1.3); BUN 86 mg/dL (8-23); BUN/CREATININE RATIO 25 (12-20 (CALC)); CARBON DIOXIDE 23 mmol/l (22-30)
[2023-11-08 07:06] VITALS: BP 99/52
--- NOTE | 2023-11-08 07:30 | NUR ---
PT DOWN FOR THORACENTISIS VIA BED. PT HAS NO C/O PAIN AT THIS TIME.
[2023-11-08] MEDS ORDERED: TAMSULOSIN HCL 0.4 MG CAP PO SCH (08:00)
[2023-11-08] MEDS ORDERED: AZITHROMYCIN 500 MG in SODIUM CHLORIDE 0.9% 250 ML IV SCH (09:00)
--- NOTE | 2023-11-08 09:45 | NUR ---
PT BACK FROM THORACENTISIS, PT ALERT AND ORIENTED X 3. PT HAS NO C/O PAIN AT THIS TIME. PT TELE ON WITH ALL LEADS ATTACHED, IV SITE TO LEFT WRIST CLEAN AND INTACT,SL. PT LUNGS DIMNISHED AND BREATHING IS NO N LABORED. PT ABD IS SOFT WITH ACTIVE BS. TRIPLETT CATH INTACT AND DRAINING CLEAR YELLOW URINE. BLE WITH 3+ PITTING EDEMA. PT HAS CALL LIGHT WITHIN REACH AND SAFETY MEASURES IN PLACE AT THIS TIME.
[2023-11-08 10:17] VITALS: BP 98/54
[2023-11-08] MEDS ORDERED: IRON SUCROSE COMPLEX 200 MG in SODIUM CHLORIDE 0.9% 100 ML IV SCH (10:30)
--- NOTE | 2023-11-08 12:00 | NUR ---
PT IN BED WITH HOB UP RESTING WITH EYES OPENED. PT AT BEDSIDE. PT HAS NO C/O PAIN AT THIS TIME. PT HAS CALL LIGHT WITHIN REACH AND SAFETY MEASURES IN PLACE AT THIS TIME.
[2023-11-08 15:24] VITALS: BP 94/51
--- NOTE | 2023-11-08 16:00 | NUR ---
PT IN BED WITH HOB UP EYES OPEN, PT HAS NO C/O PAIN AT THIS TIME. PT HAVING CLEAR, YELLOW URINE DRAINING IN TRIPLETT CATHETER. PT HAS CALL LIGHT WIHTIN REACH AND SAFETY MEASURES IN PLACE AT THIS TIME.
[2023-11-08 19:24] VITALS: BP 97/49
--- NOTE | 2023-11-08 20:00 | NUR ---
PT RESTING IN BED NO DISTRESS NOTED DURING ASSESSMENT. NEW IV SITE PLACE ON LFA 22G. TRIPLETT CHECKED FOR KINCKS AND EMPTIED. CALL LIGHT WITHIN REACH. PLAN OF CARE ONGOING.
--- NOTE | 2023-11-09 | NUR ---
PT SLEEPING NO DISTRESS NOTED ON EXAM. CALL LIGHT WITHIN REACH. PLAN OF CARE ONGOING.
[2023-11-09 00:09] VITALS: BP 96/41
[2023-11-09 04:06] VITALS: BP 109/56
--- NOTE | 2023-11-09 04:20 | NUR ---
PT IS SLEEPING NO DISTRESS NOTED. CALL LIGHT WITHIN REACH. PLAN OF CARE ONGOING.
[2023-11-09 05:01] LABS: BASO% 0.1 % (0-3); EOS% 0.2 % (0-8); HEMATOCRIT 23.3 % (39.0-50.0); HEMOGLOBIN 7.7 g/dl (14.0-18.0); LYMPH% 2.1 % (15-41); MEAN CELL VOLUME 92.8 fL CALC (80.0-100.0); MEAN CORPUSCULAR HGB 30.7 pG CALC (26.0-32.0); MONO% 8.8 % (2-13); NEUT# 13.68 thou/uL (1.82-7.42); NEUT% 82.3 % (42-76); RED BLOOD COUNT 2.51 mill/uL (4.70-6.10)
[2023-11-09 05:06] LABS: IMMATURE GRANULOCYTES 6.5 % (0.0-5.0)
--- NOTE | 2023-11-09 05:12 | NUR ---
patient is unable to stand on standing scale and no mundo pad is available to do mundo weight. bed weight was performed and charted. Nurse notified
[2023-11-09 05:19] LABS: CREATININE 3.7 mg/dL (0.7-1.3); MAGNESIUM 1.6 mg/dL (1.6-2.3); POTASSIUM 3.9 mmol/l (3.5-5.1)
[2023-11-09 06:37] VITALS: BP 81/39
--- NOTE | 2023-11-09 08:30 | NUR ---
ASSESSMENT IS COMPLETED; IV SITE IS FREE FROM REDNESS OR EDEMA. HR IS REG,PULLSES ARE STRONG X4,ABD IS SOFT WITH ACTIVE BS, BREATH SOUNDS ARE DIMINSHED, TRIPLETT DRAINING YELLOW URINE, SKIN LOOKS A LITTLE YELLOW AND PALE TODAY.
--- NOTE | 2023-11-09 08:58 | NUR ---
PT IS REFUSING ALL MEDICATIONS , STATED" I WANT TO , JUST LET ME SLEEP" INFORMED DR. LOMELI. WILL TALK WITH THE PT AND FAMILY.
--- NOTE | 2023-11-09 10:00 | NUR ---
SPOKE WITH THE TO INFORM OF PT REFUSING THE MEDICATION AND IS AWARE.
--- NOTE | 2023-11-09 12:00 | NUR ---
PT IS SITTING IN THE CHAIR, IV SITE REMAINS FREE FROM REDNESS OR EDEMA. TELE MONITOR IN PLACE. CONTINUE TO OBSERVE AND MONITOR.
--- NOTE | 2023-11-09 12:13 | NUR ---
PT REQUESTED A PAINPILL, APOLOGIZED FOR THE WAY HE ACTED THIS AM, WITH THE FOOD AND WITH STAFF. IS WILLING TO EAT SOME APPLESAUCE.
--- NOTE | 2023-11-09 13:10 | NUR ---
PT REQUESTED TO GO BACK TO BED, 2 PERSON ASSIST. FAMILY IN THE ROOM. PT IS A LITTLE DIZZY. TRIPLETT DRAINING URBAN URINE.
--- NOTE | 2023-11-09 13:28 | NUR ---
PT'S FAMILY INQUIRING ABOUT AN ONCOLOGIST. DR LOMELI IN TO VISIT WITH PT AND FAMILY
[2023-11-09] MEDS ORDERED: HYDROcodone 7.5 MG/Acetaminophen 325 MG/COMBO PO PRN (13:40)
[2023-11-09] MEDS ORDERED: FUROSEMIDE 40 MG/4 ML SDV IV SCH (14:00)
[2023-11-09] MEDS ORDERED: predniSONE 10 MG/TAB PO SCH (14:00)
--- NOTE | 2023-11-09 14:08 | NUR ---
PT IS RESTING AT THIS TIME. FAMILY STATED" HE IS A LITTLE CALMER".
--- NOTE | 2023-11-09 14:59 | NUR ---
ULTRASOUND BEING DONE AT BEDSIDE.
[2023-11-09 15:45] VITALS: BP 91/46
--- NOTE | 2023-11-09 16:00 | NUR ---
PT IS RELAXING IN BED WITH NO DISTRESS NOTED. IV SITE IS FREE FROM REDNESS OR EDEMA.
[2023-11-09 19:18] VITALS: BP 90/52
--- NOTE | 2023-11-09 20:36 | NUR ---
BESIDE REPORT RECIEVED. PT A/OX3 RESTING IN SEMI FOWLERS POSITION WITH AT BEDSIDE. RESPIRATIONS EVEN AND UNLABORED ON ROOM AIR. LUNG SOUNDS DIMINISHED. BOWEL SOUNDS ACTIVE. #22G LFA PATENT. SKIN INTACT. 2+ EDEMA NOTED TO BLE. TRIPLETT CATH DRAINING PER GRAVITY WITH 400 URBAN URINE NOTED. PT DENIES OF ANY PAINS AT THIS TIME. GLUCOSE 288, COVERAGE ADMINISTERED PER ORDER. PT ORIENTED TO ROOM AND CALL LIGHT. ALL SAFETY PRECAUTIONS ARE IN PLACE WITH CALL LIGHT IN REACH
[2023-11-09 23:50] VITALS: BP 102/50
[2023-11-10] VITALS (13 sets, daily range): BP systolic 79–105; BP diastolic 38–58
--- NOTE | 2023-11-10 00:28 | NUR ---
PT SLEEPING IN SEMI FOWLERS POSITION. RESPIRATIONS EVEN AND UNLABORED ON ROOM AIR. TELE MONITORING IN PLACE. IV PATENT. TRIPLETT DRAINING PER GRAVITY. NO SIGNS OF DISTRESS. ALL SAFETY PRECAUTIONS ARE IN PLACE WITH CALL LIGHT IN REACH.
--- NOTE | 2023-11-10 04:12 | NUR ---
PT SLEEPING IN SEMI FOWLERS POSITION. RESPIRATIONS EVEN AND UNLABORED ON ROOM AIR. IV NOTED. TELE MONITORING IN PLACE. NO SIGNS OF DISTRESS. ALL SAFETY PRECAUTIONS ARE IN PLACE WITH CALL LIGHT IN REACH.
[2023-11-10 05:16] LABS: BASO% 0.3 % (0-3); EOS% 0.1 % (0-8); HEMATOCRIT 22.8 % (39.0-50.0); HEMOGLOBIN 7.8 g/dl (14.0-18.0); IMMATURE GRANULOCYTES 4.1 % (0.0-5.0); MEAN CELL VOLUME 91.6 fL CALC (80.0-100.0); MEAN CORPUSCULAR HGB 31.3 pG CALC (26.0-32.0); MEAN CORPUSCULAR HGB CONC 34.2 g/dL CAL (32.0-36.0); MONO% 6.6 % (2-13); NEUT# 14.95 thou/uL (1.82-7.42); NEUT% 86.9 % (42-76); RED BLOOD COUNT 2.49 mill/uL (4.70-6.10); RED CELL DISTRI WIDTH 15.9 % (11.5-15.5)
[2023-11-10 05:40] LABS: ALBUMIN 2.4 g/dL (3.2-5.0); BILIRUBIN, TOTAL 0.9 mg/dL (0.2-1.3); CREATININE 3.6 mg/dL (0.7-1.3); TOTAL PROTEIN 4.9 g/dL (6.3-8.2)
--- NOTE | 2023-11-10 06:08 | NUR ---
WORK CHECKER INFORMED OF BUN RESULTING IN 97. DR BUTCHER INFORMED
--- NOTE | 2023-11-10 07:00 | NUR ---
SHIFT CHANGE REPORT, PT AWAKE ALERT AND ORIENTED RESTING IN BED, N OC/O DISCOMFORT AT THIS TIME, TELE MONITOR IN PLACE, CALL MONTES IN REACH AND BED LOCKED IN LOWEST POSITION.
--- NOTE | 2023-11-10 15:41 | NUR ---
PROGRAMMER ANALYST JUST REPORTED 5 BEATS V-TACH AND SENT UP STRIP, DR CAN NOTIFIED, NO NEW ODERS, SAID THAT WAS OK.
--- NOTE | 2023-11-10 18:58 | NUR ---
Took patient blood pressure @1830 Temp 97.8, BP 77/38, HR 82, O2 98%. Notice the blood pressure to the nurse. Retook the blood pressure again 79/42.
--- NOTE | 2023-11-10 19:00 | NUR ---
BEDSIDE REPORT RECIEVED
--- NOTE | 2023-11-10 19:31 | NUR ---
PT SITTING IN RECYLINER WITH AT BEDSIDE. PT A/OX3. RESPIRATIONS EVEN AND UNLABORED ON ROOM AIR. LUNG SOUNDS CLEAR. HEART RHYTHM NORMAL WITH TELE IN PLACE. BOWEL SOUNDS ACTIVE. #22G LFA PATENT. SKIN INTACT WITH 3+ EDEMA NOTE TO BLE. PT C/O OF LEFT KNEE PAIN WHEN LIFTING. LOW BP NOTED, PT REMAINS ASYMPTOMATIC. MD AWARE. PT DENIES OF ANY NEEDS. ALL SAFETY PRECAUTIONS ARE IN PLACE WITH CALL LIGHT IN REACH.
--- NOTE | 2023-11-10 19:32 | NUR ---
DR CAN NOTIFIED OF BP 79/42, ADISED TO RECHECK MANUALLY AND CALL HIM WITH RESULT, NIGHT RN NOTIFIED.
--- NOTE | 2023-11-10 19:47 | NUR ---
MANUAL BP CONFIRMED 85/40, PT REMAINS ASYMPTOMATIC . DR COLLINS UPDATED. ORDERS TO MONITOR BP AND CALL BACK IF BP DROPS BLOW 80'S SYSTOLIC OR IF PT BECOMES SYMPTOMATIC
[2023-11-11] VITALS (9 sets, daily range): BP systolic 89–119; BP diastolic 42–59
--- NOTE | 2023-11-11 | NUR ---
PT SLEEPING IN RECYLINER, REQUESTING TO STAY IN CHAIR. RESPIRATIONS EVEN AND UNLABORE ON ROOM AIR. TELE MONITORING IN PLACE. IV NOTED. NO SIGNS OF ANY DISTRESS. ALL SAFETY PRECAUTIONS ARE IN PLACE WITH CALL LIGHT IN REACH
--- NOTE | 2023-11-11 04:39 | NUR ---
PT SITTING IN RECYLINER WATCHING TV. RESPIRATIONS EVEN AND UNLABORED ON ROOM AIR. IV PATENT. TELE MONITORING IN PLACE. TRIPLETT CATH DRAINING PER GRAVITY. PT DENIES OF ANY ANY NEEDS. ALL SAFETY PRECAUTIONS ARE IN PLACE WITH CALL LIGHT IN REACH
--- NOTE | 2023-11-11 05:56 | NUR ---
REASSESSMENT OF BP. LASIX HELD DUE TO CONTINING LOW BP.
--- NOTE | 2023-11-11 05:58 | NUR ---
pt refused to have his weight taken. pt stated he was too dizzy and would do it later. nurse notified.
--- NOTE | 2023-11-11 06:19 | NUR ---
STANDING SCALE CMPLETED BY INFANT TEACHER RESULTING IN 96.2 KG
[2023-11-11 06:22] LABS: BASO% 0.2 % (0-3); EOS% 0.2 % (0-8); HEMATOCRIT 24.7 % (39.0-50.0); IMMATURE GRANULOCYTES 4.2 % (0.0-5.0); LYMPH% 2.9 % (15-41); MEAN CELL VOLUME 93.2 fL CALC (80.0-100.0); MEAN CORPUSCULAR HGB 30.2 pG CALC (26.0-32.0); MEAN CORPUSCULAR HGB CONC 32.4 g/dL CAL (32.0-36.0); MONO% 7.1 % (2-13); NEUT# 14.76 thou/uL (1.82-7.42); NEUT% 85.4 % (42-76); RED BLOOD COUNT 2.65 mill/uL (4.70-6.10); RED CELL DISTRI WIDTH 16.1 % (11.5-15.5)
[2023-11-11 06:50] LABS: CREATININE 3.6 mg/dL (0.7-1.3); POTASSIUM 4.5 mmol/l (3.5-5.1)
--- NOTE | 2023-11-11 07:34 | NUR ---
SHIFT CHANGE REPORT, PT AWAKE ALERT AND ORIENTED SITTING UP IN RECLINER WITH LEGS HANGING, NSG STUDENT (CHRISTINA) ELEVATED LEGS AND EDUCATED ON BENEFITS OF KEEPING LEGS ELEVATED, 4+ PITTING EDEMA TO BLE, NO CO DISCOMFORT AT THIS TIME, TELE MONITOR IN PLACE, CALL MONTES IN REACH.
--- NOTE | 2023-11-11 12:00 | NUR ---
SITTING UP IN RECLINER, C/O DISCOMFORT BUT DOES NOT WANT TO LAY IN BED, WILL CONTINUE TO MONITOR.
[2023-11-11] MEDS ORDERED: FUROSEMIDE 40 MG/4 ML SDV IV SCH (14:00)
[2023-11-11] MEDS ORDERED: MIDODRINE HCL 5 MG TAB PO SCH (15:00)
--- NOTE | 2023-11-11 16:00 | NUR ---
SLEEPING IN RECLINER BUT RESPONDS TO VERBAL STIMULI, ALL NEEDS ADDRESSED.
[2023-11-12] VITALS (8 sets, daily range): BP systolic 100–114; BP diastolic 48–56
[2023-11-12 05:32] LABS: BASO% 0.4 % (0-3); EOS% 0.1 % (0-8); HEMATOCRIT 21.2 % (39.0-50.0); HEMOGLOBIN 7.1 g/dl (14.0-18.0); IMMATURE GRANULOCYTES 4.6 % (0.0-5.0); LYMPH% 3.8 % (15-41); MEAN CORPUSCULAR HGB 31.1 pG CALC (26.0-32.0); MEAN CORPUSCULAR HGB CONC 33.5 g/dL CAL (32.0-36.0); MONO% 7.1 % (2-13); NEUT# 11.5 thou/uL (1.82-7.42); RED BLOOD COUNT 2.28 mill/uL (4.70-6.10)
[2023-11-12 05:51] LABS: CREATININE 3.1 mg/dL (0.7-1.3); POTASSIUM 4.3 mmol/l (3.5-5.1)
--- NOTE | 2023-11-12 07:07 | NUR ---
pt awake in bed; offers complaints of bilat knee pain; will medicate; assessment completed at this time; pt alert and oriented; no n/v noted; resp even and unlabored; lungs clear; skin color pale; hr irreg; tele monitor in place; 4+ edema noted to ble and scrotum; leg elevation encouraged; abd soft/ distended with bs present; no bm noted per assembly instructions writer; garnett to gravity draining clear yellow urine; cath strap intact; #22 saline locked to lfa; pt with complaints of pain during flushing; blanchable redness noted to coccyx, pt encouraged to reposition from side to side; diet explained; call light within reach; will continue to monitor
--- NOTE | 2023-11-12 12:05 | NUR ---
pt awake in bed eating lunch; spouse at bedside; iv intact and patent; tele monitor intact; call light within reach; will continue to monitor
[2023-11-12] MEDS ORDERED: ALBUMIN 25% (12.5GM/50 ML) VIAL IV SCH (12:30)
[2023-11-12 12:35] LABS: URINE BILIRUBIN - DIPSTICK Negative (NEGATIVE); URINE BLOOD DIPSTICK Large (NEGATIVE); URINE GLUCOSE - DIPSTICK Negative (NEGATIVE); URINE KETONE Negative (NEGATIVE); URINE LEUK ESTERASE Negative (NEGATIVE); URINE NITRITE - DIPSTICK Negative (Negative); URINE PH 5.5 (4.5-8.0); URINE PROTEIN - DIPSTICK Trace mg/dL (NEG-TRACE); URINE UROBILINOGEN - DIPSTICK 0.2 E.U./dL (0.2)
[2023-11-12 12:36] LABS: URINE COLOR Dark yellow
[2023-11-12 12:45] LABS: URINE HYALINE CAST FEW lpf (NONE-RARE); URINE RBC 50-100 RBC/hpf (0-5); URINE WBC 0-2 WBC/hpf (0-5)
--- NOTE | 2023-11-12 13:15 | NUR ---
compression wraps applied to ble as per WIG DRESSER Ellen request
--- NOTE | 2023-11-12 16:10 | NUR ---
resting in bed with eyes closed; easily aroused; offers no complaints; garnett to gravity; compression wrap intact to ble; tele in place; call light within reach; will continue to monitor
--- NOTE | 2023-11-12 19:10 | NUR ---
PATIENT RESTING IN BED WITH HOB ELEVATED. ALERT AND ABLE TO MAKE NEEDS KNOWN. ASSESSMENT COMPLETE. NO DISTRESS NOTED. NO COMPLAINTS OF PAIN. DENIES NEEDING ANYTHING AT THIS TIME. BED IN LOW POSITION. CALL MONTES IN REACH.
[2023-11-13] VITALS (12 sets, daily range): BP systolic 100–128; BP diastolic 44–64
--- NOTE | 2023-11-13 | NUR ---
PATIENT REMAINS RESTING IN BED. NO DISTRESS NOTED. NO SIGNS OF PAIN. BED REMAINS IN LOW POSITION. CALL MONTES IN REACH.
--- NOTE | 2023-11-13 03:20 | NUR ---
PATIENT REMAINS RESTING IN BED. DENIES NEEDING ANYTHING AT THIS TIME.
[2023-11-13 05:46] LABS: BASO% 0.3 % (0-3); EOS% 0.1 % (0-8); HEMATOCRIT 21.7 % (39.0-50.0); IMMATURE GRANULOCYTES 4.9 % (0.0-5.0); LYMPH% 5.1 % (15-41); MEAN CELL VOLUME 94.3 fL CALC (80.0-100.0); MEAN CORPUSCULAR HGB CONC 31.8 g/dL CAL (32.0-36.0); NEUT# 9.63 thou/uL (1.82-7.42); NEUT% 82.6 % (42-76); RED BLOOD COUNT 2.3 mill/uL (4.70-6.10); RED CELL DISTRI WIDTH 15.7 % (11.5-15.5)
[2023-11-13 05:51] LABS: CREATININE 2.4 mg/dL (0.7-1.3); POTASSIUM 4.2 mmol/l (3.5-5.1)
[2023-11-13 06:10] LABS: HEMOGLOBIN 6.9 g/dl (14.0-18.0)
--- NOTE | 2023-11-13 08:00 | NUR ---
pt awake in bed; no apparent distress noted; pt offers no complaints; assessment completed at this time; pt alert and oriented; denies pain; no n/v noted; resp even and unlabored; lungs clear; ra; hr irreg; wk pedal pulses; 4+ edema noted to ble; scrotal edema noted as well; tele monitor; abd soft/distended with bs present; no bm noted per physician underwriter; garnett to gravity draining clear yellow urine; cath strap intact; #22 to rw saline locked; no redness or edema noted at site; redness noted coccyx; plan of care/ blood transfusion explained; call light within reach; will continue to monitor
--- NOTE | 2023-11-13 08:21 | NUR ---
spouse Ayah Jett called per this web content writer as per pt request; spouse informed of need for 1 unit of blood product
--- NOTE | 2023-11-13 08:49 | NUR ---
1st unit of PRBC verified at bedside as per protocol; transfusion initiated; pt explained s/sx of reactions and to notify staff immed; junior technical writer at bedside to monitor;
[2023-11-13] MEDS ORDERED: AZITHROMYCIN 250 MG/TAB PO SCH (09:00)
--- NOTE | 2023-11-13 09:39 | NUR ---
resting in bed with eyes closed; no redness or edema noted at site; no reaction noted or voiced; spouse at bedside; call light within reach; will continue to monitor
--- NOTE | 2023-11-13 12:00 | NUR ---
pt awake in bed; offers no complaints; spouse at bedside; eating lunch; iv intact and patent; tele monitor intact; call light within reach; will continue to monitor
[2023-11-13] MEDS ORDERED: ALBUMIN 25% (12.5GM/50 ML) VIAL IV SCH (12:30)
--- NOTE | 2023-11-13 16:06 | NUR ---
pt resting in bed with eyes closed; no apparent distress noted; iv intact; tele monitor in place; call light within reach; will continue to monitor
--- NOTE | 2023-11-13 19:30 | NUR ---
PT IN BED NO S/S OF DITRESS NOTED. BREATING IS EVEN AND UNLABORED. FAMILY AT BEDSIDE. NO NEEDS OR CONCERN VOICED CALL LIGHT IN REACH AND BED IN LOWEST POSITION.
--- NOTE | 2023-11-13 22:10 | NUR ---
PT IN BED. NO S/S OF DISTRESS NOTED. BREATING IS EVEN ADN UNLABORED. DENIES PAIN OR DISCOMFRT. SHIFT ASSESSMENT COMPLETED. TRIPLETT CATH IN PLACE 1500 CC OF YELLOW URINE NOTED. PT IS AT ROOM AIR LUNGS ARE CLEAR. 22G IV LW PATENT AND FLUSHES WELL. CALL LIGHT IN REACH AND BED IN LOWEST POSITION.
[2023-11-14] VITALS (7 sets, daily range): BP systolic 107–135; BP diastolic 48–73
--- NOTE | 2023-11-14 00:45 | NUR ---
PT IN BED RERSTING WITH EYES CLOSED BREATHING IS EVEN AND UNLABORED. NO S/S OF DISTRESS NOTED CALL LIGHT IN REACH AND BED IN LOWEST POSITION.
--- NOTE | 2023-11-14 04:42 | NUR ---
PT IN BED RESTING WITH EYES CLSOED BREATHING IS EVEN AND UNLABORED NO S/S OF DISITRESS NOTED CALL LIGHT IN REACH AND BED IN LOWEST POSITION.
[2023-11-14 06:02] LABS: BASO% 0.3 % (0-3); EOS% 0.2 % (0-8); HEMATOCRIT 22.9 % (39.0-50.0); HEMOGLOBIN 7.6 g/dl (14.0-18.0); IMMATURE GRANULOCYTES 5.3 % (0.0-5.0); LYMPH% 4.8 % (15-41); MEAN CELL VOLUME 92.3 fL CALC (80.0-100.0); MEAN CORPUSCULAR HGB 30.6 pG CALC (26.0-32.0); MEAN CORPUSCULAR HGB CONC 33.2 g/dL CAL (32.0-36.0); MONO% 6.2 % (2-13); NEUT# 9.83 thou/uL (1.82-7.42); NEUT% 83.2 % (42-76); RED BLOOD COUNT 2.48 mill/uL (4.70-6.10)
[2023-11-14 06:30] LABS: POTASSIUM 3.7 mmol/l (3.5-5.1)
--- NOTE | 2023-11-14 08:00 | NUR ---
PATIENT ALERT AND OREINTED X3, ROOM AIR, IV SITE CLEAN AND INTACT WITH SALINE LOCK, FLUSHED WITH NO PROBLEMS, PATIENT DENIED ANY PAIN AT THE MOMENT AND HE JUST WANTS TO GO HOME, TELE MONITOR IN IN PLACE AND WORKING, LUNG SOUNDED CLEAR, ACTIVE BOWEL SOUNDS, MEDICATIONS AND PLAN OF CARE [place] REVIEWED, PATIENT STATED THAT HE HAD A BOWEL MOVEMENT ON 11/13/23, GLUCOSE WAS 235, 4 UNITS WAS GIVEN, CALL LIGHT WITH REACH, VERBALIZED UNDERSTANDING ON HOW TO USE, BED IN LOWEST POSTION, FREQUENT ROUNDING CONTINUE
--- NOTE | 2023-11-14 11:49 | NUR ---
PATIENT GLUCOSE READ 395, GAVE 12 UNITS
--- NOTE | 2023-11-14 12:08 | NUR ---
PATIENT ALERT AND ORINTED X3, ROOM AIR, IN SEMI GAMBLE POSTION WITH IN ROOM, TELE MONITORS IN PLACE WITH LEADS ATTACHED, PATIENT DENIED ANY PAIN AT THE MOMENT, DENIED NEEDING ANYTHING AT THE MOMENT, BREATHING UNLABORED AND EVEM, IV SITE CLEAN AND INTACT SALINE LOCKED, FLUSHED WITH NO ISSUES, TRIPLETT OUTPUT IN GOOD STANDING WITH NO ISSUES, CALL LIGHT WITHIN REACH, VERBALIZED UNDERSTANDING ON HOW TO USE, BED IN LOWEST POSTION, SAFTEY MESAURES IN PLACE
[2023-11-14] MEDS ORDERED: ALBUMIN 25% (12.5GM/50 ML) VIAL IV SCH (13:30)
--- NOTE | 2023-11-14 16:11 | NUR ---
PATIENT ALERT AND ORIENTEDX3, LAYING DOWN RESTING, ROOM AIR, IV SITE CLEAN AND INTACT WITH SALINE LOCK, FLUSHED WITH NO ISSUES, TELE IN PLACED WITH LEADS ATTACHED, IN ROOM WITH PATIENT, BREATHING UNLABORED AND EVEN, PATIENT DENIED ANY PAIN AT THE MOMENT, DENIED NEEDING ANYTHING, PATIENT STATED THAT HE JUST WANTS TO GO HOME, PLAN OF CARE AND MEDICATION REVIEWED, CALL LIGHT WITHIN REACH, VERBALIZED UNDERSTANDING ON HOW TO USE, BED IN LOWEST POSTION, FREQUENT ROUNDING CONTINUED
[2023-11-14] MEDS ORDERED: MAGNESIUM SULFATE HEPTAHYDRATE 50 ML IV ONE (16:30)
[2023-11-14] MEDS ORDERED: POTASSIUM CHLORIDE 20 MEQ/TAB PO ONE (16:30)
[2023-11-14] MEDS ORDERED: FUROSEMIDE 40 MG/TAB PO SCH (17:06)
[2023-11-14] MEDS ORDERED: Zaleplon 5 MG/CAP PO PRN (17:10)
[2023-11-15 04:13] VITALS: BP 121/57
[2023-11-15 06:29] LABS: BASO% 0.3 % (0-3); EOS% 0.5 % (0-8); HEMATOCRIT 24.9 % (39.0-50.0); HEMOGLOBIN 8.1 g/dl (14.0-18.0); IMMATURE GRANULOCYTES 4.6 % (0.0-5.0); LYMPH% 5.5 % (15-41); MEAN CELL VOLUME 92.9 fL CALC (80.0-100.0); MEAN CORPUSCULAR HGB 30.2 pG CALC (26.0-32.0); MEAN CORPUSCULAR HGB CONC 32.5 g/dL CAL (32.0-36.0); MONO% 5.4 % (2-13); NEUT# 10.1 thou/uL (1.82-7.42); NEUT% 83.7 % (42-76); RED BLOOD COUNT 2.68 mill/uL (4.70-6.10); RED CELL DISTRI WIDTH 15.7 % (11.5-15.5)
[2023-11-15 06:50] LABS: ALBUMIN 2.9 g/dL (3.2-5.0); CREATININE 1.7 mg/dL (0.7-1.3); MAGNESIUM 1.9 mg/dL (1.6-2.3); POTASSIUM 3.9 mmol/l (3.5-5.1); TOTAL PROTEIN 5.4 g/dL (6.3-8.2)
[2023-11-15 06:59] VITALS: BP 109/44
--- NOTE | 2023-11-15 07:00 | NUR ---
SHIFT CHANGE REPORT, PT AWAKE ALERT AND ORIENTED RESTING IN BED, NO C/O DISCOMFORT AT THIS TIME, TELE MONITOR IN PLACE, TRIPLETT CATHETR IN PLCE WITH CLEAR LIGHT URBAN URINE, LEGE WRAPPED WITH FAMILIA ANDAGE AND EDEMA MUCH IMPROVED, CALL MONTES IN REACH AND BED LOCKED IN LOWEST POSITION.
--- NOTE | 2023-11-15 09:00 | NUR ---
TRIPLETT CATHETER REMOVED WITHOUT DIFFICULTY AND PT TOLERATED WELL, URINATED 200 ML 1AND 1/2 HOUR POST REMOVAL.
[2023-11-15 11:25] VITALS: BP 107/49
[2023-11-15] MEDS ORDERED: TAMSULOSIN HCL0.4 MG PO (11:34)
[2023-11-15] MEDS ORDERED: MIDODRINE5 MG PO (11:34)
--- NOTE | 2023-11-15 13:52 | NUR ---
Discharge instructions given. Patient verbalizes understanding of same. Discharged in stable condition via Wheelchair to Home with family. All belongings sent with pt.
== END 2023-11-15 13:50 | disposition home health service (06) | DRG 291 ==
LOC: ED 18:34 → ED-I 23:20 → ED 23:53 → MS2 23:53
PROVIDERS: Family Medicine; Internal Medicine Nephrology; Nurse Practitioner Family; Student in an Organized Health Care Education/Training Program; ADMIT Student in an Organized Health Care Education/Training Program; ATTEND Student in an Organized Health Care Education/Training Program
PROC: 0T9B70Z Drainage of Bladder with Drainage Device, Via Natural or Artificial Opening (ICD-10-PCS; principal; 2023-11-06)
PROC: 30233N1 Transfusion of Nonautologous Red Blood Cells into Peripheral Vein, Percutaneous Approach (ICD-10-PCS; 2023-11-07)
PROC: 30233N1 Transfusion of Nonautologous Red Blood Cells into Peripheral Vein, Percutaneous Approach (ICD-10-PCS; 2023-11-07)
PROC: 0W993ZZ Drainage of Right Pleural Cavity, Percutaneous Approach (ICD-10-PCS; 2023-11-08)
PROC: 30233N1 Transfusion of Nonautologous Red Blood Cells into Peripheral Vein, Percutaneous Approach (ICD-10-PCS; 2023-11-13)
DX: I50.33 Acute on chronic diastolic (congestive) heart failure (principal); J18.9 Pneumonia, unspecified organism; C93.10 Chronic myelomonocytic leukemia not having achieved remission; J91.8 Pleural effusion in other conditions classified elsewhere; N17.9 Acute kidney failure, unspecified; E87.1 Hypo-osmolality and hyponatremia; E87.20 Acidosis, unspecified; D64.9 Anemia, unspecified; I95.9 Hypotension, unspecified; E11.22 Type 2 diabetes mellitus with diabetic chronic kidney disease; N18.32 Chronic kidney disease, stage 3b; E11.65 Type 2 diabetes mellitus with hyperglycemia; I25.10 Atherosclerotic heart disease of native coronary artery without angina pectoris; I48.91 Unspecified atrial fibrillation; I77.6 Arteritis, unspecified; Z95.818 Presence of other cardiac implants and grafts; Z79.84 Long term (current) use of oral hypoglycemic drugs; Z79.4 Long term (current) use of insulin; Z87.01 Personal history of pneumonia (recurrent)
CPT/HCPCS: J1756; J3475; P9016; P9047